=== PATIENT | female | born 1955 | race Two or more races ===

== ENCOUNTER → 2016-03-18 | Outpatient (CLI) | payer MEDICAID ==
--- NOTE | 2016-03-18 17:26 | DX ---
Two-View Cervical Spine Clinical Indication: Cervical pain. Comparison: MR December 30, 2014. Findings: A small surgical plate is seen on the posterior skull. Moderate degenerative changes are se en at the atlantooccipital junction. There has been prior fusion at C4-C5 with anterior plate, interd isk spacer, and bony fusion at C5-C6. Moderate degenerative change is present at C6-C7 and C7-T1. Impressions 1. Moderate degenerative changes of the cervical spine as above. Three-level fusion from C4 through C 6. 2. Prior occipital decompression.
--- NOTE | 2016-03-18 19:13 | DX ---
Thoracic and Lumbar Spine, and Right Knee Clinical History: 60-year-old female who fell onto her right knee on March 17, 2016 and complains o f persistent pain. She also has low back pain with a prior history of arthrodesis in January 2015, a nd also complains of some midthoracic back pain. ICD 10 Diagnostic Codes: 25.569, M54.2, and M54.9. Comparison Studies: This is read in conjunction with cervical spine radiographs performed earlier thi s morning, MR imaging of the lumbar spine dated December 30, 2014, and radiographs of the right knee d ated December 24, 2014. Findings: THORACIC SPINE (AP, Lateral, and Swimmer's Upright Views, 3 Views Total at 11:49 a.m.): The patient h as undergone prior arthrodesis from C4 to C6 with complete interbody osseous fusion at C5-C6, and a v entrally-applied fusion plate at C4-C5 secured by transcervical screws and an interbody bone prosthes is. There is straightening of the normal cervical lordosis. There is advanced degenerative the space narrowing at C6-C7, where there are ventral traction spurs. A small ventral osteophyte at anterior th rough C3 level is also observed. A surgical plate is seen along the occiput. The thoracic vertebral b jose heights and posterior alignments are maintained. There is a biphasic scoliosis with a dextro- mid thoracic component measuring 12 degrees, and a levothoracolumbar junction component measuring 13 degr ees. The interpediculate distances are appropriate. There is no paraspinal stripe widening. There is mild degenerative disk space narrowing at T8-T9, T9-T10, and T10-T11 with tiny ventral traction osteo phytes at T10-T11. Impression: 1. Mild biphasic thoracolumbar scoliosis with some degenerative features. 2. Postsurgical changes at the C4-C6 levels, with advanced degenerative space narrowing at C6-C7. LUMBAR SPINE (AP and LATERAL UPRIGHT VIEWS, at 11:50 a.m.): The patient has undergone prior posterior spinal fusion at L5-S1 with longitudinally-oriented screws and bilateral transpedicular screws. Ther e are more medially-situated screws at the S1 level which have fractured in the past and are not cont inuous with the securing transpedicular screws. Radiopaque markers at the interbody fusion level is seen. There is also 3 mm of L4 anterolisthesis ab ove L5. Small ventral traction spurs are seen from L2 to L4. There is a mild sigmoid-shaped curvature of the thoracolumbar junction and lumbar spine with a levothoracolumbar junction scoliosis measuring 13 degrees and a dextrolumbar curvature measuring 6 degrees. The sacral arcuate lines are well-conto ured, and the SI joints appear normal. The interpediculate distances are appropriate. Impression: 1. Postoperative changes following prior arthrodesis at L5-S1 with a couple of screw fragments seen a t the S1 level. The transpedicular screws at L5 and S1 are secured. There is a mild anterolisthesis a t L4-L5 and L5-S1. 2. Mid-lumbar degenerative spondylosis, with a mild thoracolumbar scoliosis. RIGHT KNEE (AP and Lateral Views, at 11:50 a.m.): Bone mineralization is preserved, with no lytic or blastic lesion. There is no marginal erosion, or soft tissue calcification. There is no fracture or d islocation. As on the previous study there is evidence of patella micaela. There is no suprapatellar dang nt effusion, or loose osteochondral body. 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
== END ==
LOC: FIMAGING 11:33
PROVIDERS: ATTEND Physician Assistant
DX: M22.8X1 Other disorders of patella, right knee (principal); M50.31 Other cervical disc degeneration, high cervical region; M50.323 Other cervical disc degeneration at C6-C7 level; M50.33 Other cervical disc degeneration, cervicothoracic region; M54.5 Low back pain; M54.6 Pain in thoracic spine; Z98.1 Arthrodesis status